=== PATIENT | female | born 1940 | race Caucasian/White ===

== ENCOUNTER 2020-10-18 13:09 | Emergency (ER) | payer OTHER, BC ==
[2020-10-18 13:34] VITALS: BP 111/79; PULSE 85; TEMP 98; BMI 29.0
== END 2020-10-18 16:17 | disposition home or self-care (01) ==
LOC: JER 13:09
DX: S05.11XA Contusion of eyeball and orbital tissues, right eye, initial encounter (principal); M50.322 Other cervical disc degeneration at C5-C6 level; W00.9XXA Unspecified fall due to ice and snow, initial encounter
CPT/HCPCS: 70450-TC; 70486-TC; 71046-TC-FY; 72125-TC; 73523-TC-FY; 99285-25

== ENCOUNTER 2021-07-21 21:12 | Emergency (ER) | payer OTHER, BC ==
[2021-07-21 21:21] VITALS: BP 136/85; PULSE 101; BMI 26.6
[2021-07-21] MEDS ORDERED: DIPHTH,PERTUSS(ACELL),TET 0.5 ML DISP.SYRIN IM ONE ×2 (22:37→23:03)
[2021-07-22 00:23] VITALS: TEMP 97.4
== END 2021-07-22 00:52 | disposition home or self-care (01) ==
LOC: JER 21:12
PROC: 3E0234Z Introduction of Serum, Toxoid and Vaccine into Muscle, Percutaneous Approach (ICD-10-PCS; principal; 2021-07-21)
DX: S00.83XA Contusion of other part of head, initial encounter (principal); S61.431A Puncture wound without foreign body of right hand, initial encounter; W19.XXXA Unspecified fall, initial encounter
CPT/HCPCS: 70450-TC; 70486-TC; 72125-TC; 73130-TC-RT-FY; 90471; 90715; 99284-25

== ENCOUNTER 2022-02-27 03:55 | Day surgery (SDC) | payer OTHER, BC ==
[2022-02-24 12:17] VITALS: BMI 27.3
[2022-02-27] MEDS ORDERED: KETAMINE HCL 500 MG/10 ML VIAL ONE (07:06)
[2022-02-27] MEDS ORDERED: PROPOFOL 20 ML ONE ×2 (07:07→08:10)
[2022-02-27] MEDS ORDERED: ACETAMINOPHEN INJECTION 100 ML IVPB ONE (07:18)
[2022-02-27] MEDS ORDERED: DEXMEDETOMIDINE HCL 200 MCG/2 ML IVPB ONE (07:18)
[2022-02-27] MEDS ORDERED: BUPIVACAINE HCL/PF 0.5% (5MG/ML) 10 ML VIAL ONE (07:21)
[2022-02-27] MEDS ORDERED: LIDOCAINE HCL 1%, 10 MG/ML (20ML VIAL) ONE (07:21)
[2022-02-27] MEDS ORDERED: BUPIVACAINE HCL/PF 0.5% (5MG/ML) 10 ML VIAL IJ ONE (08:01)
[2022-02-27] MEDS ORDERED: LIDOCAINE HCL 1%, 10 MG/ML (20ML VIAL) INF ONE (08:01)
[2022-02-27 10:43] VITALS: RESP 20; TEMP 96.9
[2022-02-27 10:45] VITALS: BP 135/72; PULSE 77
== END 2022-02-27 10:05 | disposition home or self-care (01) ==
LOC: JASU-SURG 03:55
PROVIDERS: ATTEND Podiatrist Foot & Ankle Surgery
PROC: 0QPQ04Z Removal of Internal Fixation Device from Right Toe Phalanx, Open Approach (ICD-10-PCS; 2022-02-27)
PROC: 0QBQ0ZZ Excision of Right Toe Phalanx, Open Approach (ICD-10-PCS; principal; 2022-02-27 07:30)
DX: T84.84XA Pain due to internal orthopedic prosthetic devices, implants and grafts, initial encounter (principal); M20.41 Other hammer toe(s) (acquired), right foot
CPT/HCPCS: 88300-TC